=== PATIENT | female | born 1940 | race African-American/Black ===

== ENCOUNTER 2019-02-25 11:24 | Observation (INO) ==
[2019-02-25] MEDS ORDERED: ACETAMINOPHEN 325 MG TABLET PO PRN (14:54)
[2019-02-25] MEDS ORDERED: MORPHINE 4 MG/1 ML VIAL IV PRN (14:54)
[2019-02-25] MEDS ORDERED: ALBUTEROL 2.5 MG/3 ML NEB RESP TX PRN (14:54)
[2019-02-25] MEDS ORDERED: traZODone 50 MG TABLET PO PRN (14:54)
[2019-02-25] MEDS ORDERED: ONDANSETRON 4 MG/2 ML VIAL IV PRN (14:54)
[2019-02-25] MEDS ORDERED: BISACODYL 5 MG TABLET PO PRN (14:54)
[2019-02-25] MEDS ORDERED: guaiFENesin/DM ER 600-30 MG TABLET PO PRN (14:54)
[2019-02-25] MEDS ORDERED: DEXTROSE 50% 25 GM/50 ML VIAL IV PRN (14:58)
[2019-02-25] MEDS ORDERED: GLUCAGON 1 MG VIAL IM PRN (14:58)
[2019-02-25] MEDS: NICOTINE 21 MG/24 HR PATCH TRANSDERM SCH (15:30)
[2019-02-25] MEDS: ENOXAPARIN 40 MG/0.4 ML SYRINGE SUBCUT SCH (15:31)
[2019-02-25] MEDS: PANTOPRAZOLE 40 MG TABLET PO SCH (15:31)
[2019-02-25 15:35] LABS: Basophils # 0.1 10*3/uL (0.0-0.2); Basophils % 0.5 % (0.0-0.8); Eosinophils # 0.2 10*3/uL (0.0-0.87); Eosinophils % 1.5 % (0.00-10.9); Hematocrit 44.5 VOL% (35.7-47.0); Hemoglobin 13.7 GM/DL (12.0-16.0); Immature Granulocytes % 0.4 %; Immature Granulocytes Absolute 0.05 #; Lymphocytes # 2.5 10*3/uL (1.4-4.0); Lymphocytes % 20.1 % (21.3-54.2); Mean Corpuscular HGB Conc 30.8 GM/DL (32-36); Mean Corpuscular Volume 81.4 FL (87-102); Mean Platelet Volume 10.5 FL (9.6-12.0); Monocytes % 5.5 % (1.7-12.7); Platelet Count 258 T/CUMM (130-400); Red Blood Count 5.47 MC/CUMM (3.8-5.5); Red Cell Distribution Width 15.3 % (9.3-17.3); White Blood Count 12.3 T/CUMM (4-12)
[2019-02-25] MEDS: SODIUM CHLORIDE 0.9% 1,000 ML IV SCH (15:35)
[2019-02-25] MEDS ORDERED: MAGNESIUM SULF RIDER 2 GM in PREMIX 1 EACH IV PRN (15:57)
[2019-02-25] MEDS ORDERED: MAGNESIUM SULF RIDER 4 GM in PREMIX 1 EACH IV PRN (15:57)
[2019-02-25 16:01] LABS: Risk Ratio 4.64; VLDL CHOLESTEROL 51.6 MG/DL
[2019-02-25 16:06] LABS: Alanine Aminotransferase 11 U/L (13-56); Albumin 3.2 G/DL (3.4-5.0); Alkaline Phosphatase 71 U/L (45-117); Aspartate Amino Transferase 11 U/L (0-37); Blood Urea Nitrogen 17 MG/DL (7-18); Calcium 9.6 MG/DL (8.5-10.1); Estimated Glom Filtration Rate 74 ML/MIN; Glucose 96 MG/DL (74-106); Osmolality,Calculated 274.8 MOS/KG (273-304); Troponin I < 0.015 NG/ML (0.00-0.045)
[2019-02-25] MEDS ORDERED: POTASSIUM CHLORIDE 20 MEQ TABLET PO PRN (16:33)
[2019-02-25] MEDS: INSULIN REGULAR 100 UNIT/ML SUBCUT SCH ×2 (16:33→21:53)
[2019-02-25] MEDS: gemfibroziL 600 MG TABLET PO SCH (17:18)
[2019-02-25] MEDS ORDERED: SERTRALINE 100 MG TABLET PO SCH (21:00)
[2019-02-25] MEDS ORDERED: AMITRIPTYLINE 100 MG TABLET PO SCH (21:00)
[2019-02-25] MEDS ORDERED: allopurinoL 100 MG TABLET PO SCH (21:00)
[2019-02-25] MEDS: ALBUTEROL 2 MG TABLET PO SCH (21:53)
[2019-02-26 00:47] LABS: Troponin I < 0.015 NG/ML (0.00-0.045)
[2019-02-26] MEDS: SODIUM CHLORIDE 0.9% 1,000 ML IV SCH (00:55)
[2019-02-26 06:54] LABS: Troponin I < 0.015 NG/ML (0.00-0.045)
[2019-02-26 07:58] LABS: Apearance,Urine CLEAR (Clear); Bilirubin,Urine Negative (Negative); Blood, Urine Negative (Negative); Glucose,Urine (UA) Negative (Negative); Ketones,Urine Negative (Negative); Mucus,Urine Occasional /LPF (Occasional); Nitrite,Urine Negative (Negative); Protein,Urine Negative; Squamous Epithelial Cell,Urine Occasional /HPF (0-10); Urine Color Yellow (Yellow); Urine Specific Gravity 1.013 (1.001-1.035); Urine Urobilinogen < 2.0 EU/DL (0.2-1.0)
[2019-02-26 08:17] LABS: Barbiturates Screen,Urine Negative (Negative); Benzodiazepines Screen,Urine Negative (Negative); Cannabinoid Screen,Urine Negative (Negative); Opiate Screen,Urine Positive (Negative); Phencyclidine Screen,Urine Negative (Negative)
[2019-02-26] MEDS: gemfibroziL 600 MG TABLET PO SCH (08:48)
[2019-02-26] MEDS: NICOTINE 21 MG/24 HR PATCH TRANSDERM SCH (08:48)
[2019-02-26] MEDS: PANTOPRAZOLE 40 MG TABLET PO SCH (08:48)
[2019-02-26] MEDS: ALBUTEROL 2 MG TABLET PO SCH ×2 (08:51→16:12)
[2019-02-26] MEDS ORDERED: ASPIRIN EC 325 MG TABLET PO SCH (09:00)
[2019-02-26 12:29] VITALS: BP 134/83
[2019-02-26] MEDS: INSULIN REGULAR 100 UNIT/ML SUBCUT SCH ×2 (12:30→13:35)
[2019-02-26] MEDS: ENOXAPARIN 40 MG/0.4 ML SYRINGE SUBCUT SCH (16:12)
== END 2019-02-26 16:00 | disposition home or self-care (01) ==
LOC: N.ICU → N.2W → SUATTDRO 13:49 → N.TELEN 19:14
PROVIDERS: ADMIT Internal Medicine; ATTEND Internal Medicine